=== PATIENT | male | born 1975 | race Caucasian/White ===

== ENCOUNTER 2016-12-10 10:37 | Emergency (ER) | payer MEDICAID ==
[2016-12-10 10:37] VITALS: BMI 34.8
[2016-12-10 10:44] VITALS: RESP 18; TEMP 98.2; O2SAT 98
[2016-12-10 11:35] LABS: BASO # 0.1 K/uL (0.0-0.2); BASO % 0.7 % (0.0-2.0); EOS # 0.1 K/uL (0.0-0.7); EOS % 0.6 % (0.0-4.0); HEMOGLOBIN 13.5 g/dL (12.0-18.0); LYMPH # 1.6 K/uL (1.0-4.3); LYMPH % 18.3 % (20.0-40.0); MEAN CELL VOLUME 90.5 fL (80.0-94.0); MEAN CORPUSCULAR HEMOGLOBIN 30.1 pg (27.0-31.0); MEAN CORPUSCULAR HGB CONC 33.2 g/dL (33.0-37.0); MONO # 0.3 K/uL (0.0-0.8); NEUT # 6.6 K/uL (1.8-7.0); NEUT % 76.4 % (50.0-75.0); RBC 4.49 Mil/uL (4.40-5.90); RED CELL DISTRIBUTION WIDTH 13.8 % (11.5-14.5); WHITE BLOOD COUNT 8.6 K/uL (4.8-10.8)
[2016-12-10 11:47] LABS: ALBUMIN 3.7 g/dL (3.5-5.0)
[2016-12-10 11:50] LABS: AST/SGOT 31 U/L (17-59); BLOOD UREA NITROGEN 12 mg/dL (9-20); GFR AFRICAN-AMERICAN > 60; GFR NON-AFRICAN AMERICAN > 60
[2016-12-10 11:51] LABS: ALT/SGPT 42 U/L (21-72); CALCIUM 8.5 mg/dl (8.6-10.4)
[2016-12-10] MEDS ORDERED: Oxycodone/Acetaminophen 5/325 mg Tab PO STA (11:57)
[2016-12-10] MEDS ORDERED: Oxycodone/Acetaminophen 5/325 mg Tab ONE (12:02)
--- NOTE | 2016-12-10 12:14 | C.PDOC ---
History Of Present Illness 40 y/o male with hx ivda, uses one bag every 1 1/2 hours, presents with redness , swelling and pain to dorsum of right foot and third left finger x 5 days after injecting heroin into those areas. pt denies fever and chills. Time Seen by Provider: 12/10/16 10:48 Chief Complaint (Nursing): Abnormal Skin Integrity History Per: Patient History/Exam Limitations: no limitations Onset/Duration Of Symptoms: Days (5) Current Symptoms Are (Timing): Worse Location Of Injury: Right: Foot, Left: Hand (3rd finger) Severity: Moderate Pain Scale Rating Of: 8 Recent travel outside of the [place]: No Past Medical History Reviewed: Historical Data, Nursing Documentation, Vital Signs Vital Signs: Last Vital Signs Temp 98.2 F 12/10/16 10:40 Pulse 79 12/10/16 13:40 Resp 18 12/10/16 13:40 BP 153/89 H 12/10/16 13:40 Pulse Ox 98 12/11/16 23:37 - Medical History PMH: No Chronic Diseases Surgical History: No Surg Hx Family History: States: Unknown Family Hx - Social History Hx Tobacco Use: Yes Hx Alcohol Use: No Hx Substance Use: Yes (heroin 1 bag q 1-2 hours ivda) - Immunization History Hx Tetanus Toxoid Vaccination: Yes Hx Influenza Vaccination: Yes Hx Pneumococcal Vaccination: Yes Review Of Systems Constitutional: Negative for: Fever, Chills Cardiovascular: Negative for: Chest Pain, Palpitations Respiratory: Negative for: Cough, Shortness of Breath Gastrointestinal: Negative for: Nausea, Vomiting Musculoskeletal: Positive for: Hand Pain (left), Foot Pain (right) Neurological: Negative for: Weakness, Numbness Physical Exam - Physical Exam Appears: Non-toxic, Agitated Skin: Warm, Dry, Other (tenderness, swelling and erythema to dorsum of right foot, +2 dp pulse, no fluctuance noted; third left finger swollen with erythema and warmth and tenderness. dec rom to finger due to swelling. no fluctuance noted. +piloerection) Head: Atraumatic, Normacephalic Neck: Normal ROM Chest: No Deformity, No Tenderness Cardiovascular: Rhythm Regular, No Murmur Respiratory: Normal Breath Sounds, No Rales, No Rhonchi, No Wheezing Gastrointestinal/Abdominal: Soft, No Tenderness Pulses: Left Radial: Normal, Right Radial: Normal, Left Dorsalis Pedis: Normal, Right Dorsalis Pedis: Normal Neurological/Psych: Oriented x3, Normal Speech, Normal Cognition ED Course And Treatment - Laboratory Results Result Diagrams: 12/10/16 11:29 12/10/16 11:29 O2 Sat by Pulse Oximetry: 98 Medical Decision Making Medical Decision Making: pt with active ivda with 2 areas of cellulitis, ? abscess on left finger. pt also asking for detox. pt requires admission for iv antibiotics and possible new onset dm- elevated blood glucose in ed. discussed with Crisis team, pt unable to be detoxed while admitted on medical floor. 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 Narocotic ordered for pat now for pain and withdrawal. discussed with Dr Mays for Admission to his service. 148 pm notified by ERIC Jorge that pt moved after a lot after getting iv morphine, took off gown and put on shirt and 24 g iv in right shoulder was dislodged. pt requesting to go home on po antibiotics. i explained to patient and multiple times that the infection in his foot and hand could easily turn into sepsis, be deadly; pt understands risks and consequences of leaving against medical advice including loss of foot, hand sepsis, . pt will get rx for bactrim and augmentin. pt advised he may return at any time for antibiotics and admission. Disposition Discussed With .: Leana Mays Doctor Will See Patient In The: Hospital - Disposition Disposition: AGAINST MEDICAL ADVICE Disposition Time: 13:52 Condition: SERIOUS Additional Instructions: Take medications as prescribed. FOllow up in Medical clinic as soon as possible. Return at any time to er for further treatment. Prescriptions: Amoxicillin/Clavulanate [Augmentin 875 MG-125 MG] 1 tab PO BID #20 tab Sulfamethoxazole/Trimethoprim [Bactrim DS 800 mg-160 mg] 1 tab PO BID #20 tab Instructions: Cellulitis (ED), Hyperglycemia, Non-Diabetic (ED) Forms: General Discharge Instructions Print Language: AZERI - Clinical Impression Clinical Impression: Cellulitis of right foot without toes, Cellulitis of left middle finger, Substance abuse, Hyperglycemia, unspecified Decision To Admit - Pt Status Changed To: Hospital Disposition Of: Inpatient - Admit Certification Admit to Inpatient:: After my assessment, the patient will require hospitalization for at least two midnights. This is because of the severity of symptoms shown, intensity of services needed, and/or the medical risk in this patient being treated as an outpatient. - InPatient: Physician Admission Certification: I certify that this patient requires 2 or more midnights of care for the following reason:: requires iv antibiotics - . Bed Request Type: Regular Patient Diagnosis: Cellulitis of right foot without toes, Cellulitis of left middle finger, Substance abuse, Hyperglycemia, unspecified
[2016-12-10 12:19] LABS: URINE BACTERIA RARE (<OCC); URINE BILIRUBIN NEGATIVE (NEGATIVE); URINE BLOOD NEGATIVE (NEGATIVE); URINE CLARITY Clear (Clear); URINE COLOR Yellow (YELLOW); URINE GLUCOSE (UA) NORMAL (Normal); URINE LEUKOCYTE ESTERASE NEG Leu/uL (Negative); URINE NITRATE NEGATIVE (NEGATIVE); URINE PROTEIN NEGATIVE (NEGATIVE); URINE UROBILINOGEN NORMAL mg/dL (0.2-1.0)
[2016-12-10 12:37] LABS: BARBITURATES, UR NEGATIVE (NEGATIVE); BENZODIAZEPINES, UR POSITIVE (NEGATIVE)
[2016-12-10 12:41] LABS: OPIATES, UR NEGATIVE (NEGATIVE)
[2016-12-10 12:42] LABS: PHENCYCLIDINE, UR NEGATIVE (NEGATIVE)
[2016-12-10] MEDS ORDERED: Cefepime 1 GM in Sodium Chloride 0.9% 50 ML IVPB ONE (13:19)
[2016-12-10] MEDS ORDERED: Cefepime 1 GM in Sodium Chloride 0.9% 100 ML IVPB ONE (13:30)
[2016-12-10] MEDS ORDERED: Morphine 4 MG/ML VIAL ONE (13:33)
[2016-12-10 13:40] VITALS: BP 153/89; PULSE 79
--- NOTE | 2016-12-10 14:30 | CP.PCM.HP ---
Past Patient History - Infectious Disease Hx of Infectious Diseases: None - Past Social History Smoking Status: Heavy Smoker > 10 Cigarettes Daily - PSYCHIATRIC Hx Substance Use: Yes (heroin 1 bag q 1-2 hours ivda) - SURGICAL HISTORY Hx Surgeries: No - ANESTHESIA Hx Anesthesia: No Meds Home Medications: Home Medication List Medication Instructions Recorded Confirmed Type Amoxicillin/Clavulanate [Augmentin 1 tab PO BID #20 tab 12/10/16 Rx 875 MG-125 MG] Sulfamethoxazole/Trimethoprim 1 tab PO BID #20 tab 12/10/16 Rx [Bactrim DS 800 mg-160 mg] Allergies/Adverse Reactions: Allergies Allergy/AdvReac Type Severity Reaction Status Date / Time No Known Allergies Allergy Verified 08/05/16 18:22 Physical Exam - Constitutional Appears: Well - Head Exam Head Exam: ATRAUMATIC, NORMAL INSPECTION, NORMOCEPHALIC - Eye Exam Eye Exam: EOMI, Normal appearance, PERRL Pupil Exam: NORMAL ACCOMODATION, PERRL - ENT Exam ENT Exam: Mucous Membranes Moist, Normal Exam - Neck Exam Neck exam: Positive for: Normal Inspection - Respiratory Exam Respiratory Exam: Decreased Breath Sounds - Cardiovascular Exam Cardiovascular Exam: REGULAR RHYTHM, +S1, +S2 - GI/Abdominal Exam GI & Abdominal Exam: Diminished Bowel Sounds, Soft - Rectal Exam Rectal Exam: Deferred Results - Vital Signs Recent Vital Signs: Last Vital Signs Temp 98.2 F 12/10/16 10:40 Pulse 79 12/10/16 13:40 Resp 18 12/10/16 13:40 BP 153/89 H 12/10/16 13:40 Pulse Ox 98 12/10/16 13:52 - Labs Result Diagrams: 12/10/16 11:29 12/10/16 11:29
--- NOTE | 2016-12-10 15:29 | RAD ---
Left hand three views History: Cellulitis. Swelling. Comparison: None available. Findings: Soft tissue swelling most prominent at the level of the 3rd digit. No evidence for acute displaced fracture or dislocation. No cortical destructive changes noted. Impression: Soft tissue swelling most prominent at the level of the 3rd digit. If pain persists, consider MRI.
--- NOTE | 2016-12-10 15:43 | RAD ---
Right foot three views History: Evaluate for osteomyelitis. Comparison: None available. Findings: Diffuse soft tissue swelling. No evidence of acute displaced fracture or dislocation. Mild hallux valgus deformity. Mild cortical productive changes at the level of the 5th distal phalanx. Degenerative changes and or mild subluxation at the 2nd DIP joint space. No gross bony destructive changes to suggest for an acute osteomyelitis. Impression: Negative acute. If pain persists, consider MRI.
== END 2016-12-10 14:07 | disposition left against medical advice (07) ==
LOC: C.ER 10:37 → UNDOADMIN 13:37 → C.9E 13:37
DX: L03.115 Cellulitis of right lower limb (principal); L03.012 Cellulitis of left finger; F19.10 Other psychoactive substance abuse, uncomplicated; R73.9 Hyperglycemia, unspecified
CPT/HCPCS: 36415; 73130; 73630; 80053; 80320; 80324; 80345; 80346; 80349; 80353; 80358; 80361; 81001; 83992; 85025; 87040; 96365; 96375; 99285; J0692; J2270

== ENCOUNTER 2017-11-13 17:13 | Observation (INO) | payer MEDICAID ==
[2017-11-13 17:13] VITALS: BMI 34.8
--- NOTE | 2017-11-13 18:23 | C.PDOC ---
History Of Present Illness <April Griffiths - Last Filed: 11/13/17 20:25> <Danial Durham DO - Last Filed: 11/14/17 00:32> Patient is a 41 year old male with no significant PMHx who presents today for worsening shortness of breath and cough which started 3 days ago. Patient started having green phlegm, cough, and vomiting for 2 days. Patient has not vomited in over 24 hours, but his cough and SOB have been worsening. Patient says he also has some right sided chest pain that is exacerbated by the cough. Patient admits to headache in the back of his head which he rates 8/10. Patient denies abdominal pain, constipation, or diarrhea. (April Griffiths) History Per: Patient History/Exam Limitations: no limitations Onset/Duration Of Symptoms: Days Current Symptoms Are (Timing): Worse Initiating Event: Upper Respiratory Illness Exacerbating Factor(s): Coughing Current Respiratory Medications: None Severity: Moderate Associated Symptoms: Fever, Sweating, Chest Pain, Productive Cough (green phlegm ) <April Griffiths - Last Filed: 11/13/17 20:25> <Danial Durham DO - Last Filed: 11/14/17 00:32> Chief Complaint (Nursing): Shortness Of Breath Past Medical History - Medical History PMH: No Chronic Diseases Surgical History: No Surg Hx Family History: States: Unknown Family Hx - Social History Hx Tobacco Use: Yes Hx Alcohol Use: No Hx Substance Use: Yes (heroin abuse, last use 1 year ago ) - Immunization History Hx Tetanus Toxoid Vaccination: Yes Hx Influenza Vaccination: Yes Hx Pneumococcal Vaccination: Yes <April Griffiths - Last Filed: 11/13/17 20:25> Vital Signs: Last Vital Signs Temp 98.3 F 11/13/17 20:56 Pulse 93 H 11/13/17 22:08 Resp 22 11/14/17 00:17 BP 125/77 11/13/17 20:56 Pulse Ox 94 L 11/13/17 22:08 Review Of Systems Constitutional: Positive for: Fever, Chills, Sweats ENT: Negative for: Nose Congestion Cardiovascular: Positive for: Chest Pain Respiratory: Positive for: Cough, Sputum (green sputum), Wheezing Gastrointestinal: Negative for: Nausea, Vomiting, Abdominal Pain, Diarrhea, Constipation Skin: Negative for: Rash <April Griffiths - Last Filed: 11/13/17 20:25> Physical Exam - Physical Exam Appears: Non-toxic, No Acute Distress, Agitated Skin: Normal Color, Warm, Diaphoretic Head: Atraumatic, Normacephalic Eye(s): bilateral: Normal Inspection Throat: Normal Chest: Symmetrical Cardiovascular: Rhythm Regular, No Edema Respiratory: No Normal Breath Sounds, Rhonchi, Wheezing Gastrointestinal/Abdominal: Normal Exam, Bowel Sounds, Soft, No Tenderness Extremity: No Tenderness, No Pedal Edema Neurological/Psych: Oriented x3 <April Griffiths - Last Filed: 11/13/17 20:25> ED Course And Treatment - Laboratory Results Result Diagrams: 11/13/17 19:41 11/13/17 19:41 ECG: Interpreted By Me, Viewed By Me ECG Rhythm: Sinus Rhythm Rate From EC (bpm) O2 Sat by Pulse Oximetry: 91 <April Griffiths - Last Filed: 11/13/17 20:25> - Laboratory Results Result Diagrams: 11/13/17 19:41 11/13/17 19:41 <Danial Durham DO - Last Filed: 11/14/17 00:32> Medical Decision Making <April Griffiths - Last Filed: 11/13/17 20:25> <Danial Durham DO - Last Filed: 11/14/17 00:32> Medical Decision Making: Assessment: SOB, cough, chest pain, hx heroin abuse Plan: Cxray Labs TIFFANIE EKG duonebs blood culture UDS pneumonia on cxray, given ceftriaxone 1 g and Zithromax 500mg (April Griffiths) Disposition <April Griffiths - Last Filed: 11/13/17 20:25> - Disposition Disposition Time: 19:00 <Danial Durham DO - Last Filed: 11/14/17 00:32> - Disposition Disposition: AGAINST MEDICAL ADVICE Condition: FAIR - Clinical Impression Clinical Impression: Chr obstructive pulmonary disease w/ acute lower respiratory infxn, Dyspnea, Respiratory tract infection
[2017-11-13] MEDS ORDERED: Albuterol-Ipratrop 3 mg / 0.5 (3 ml) UD INH STA ×2 (18:34→18:51)
[2017-11-13] MEDS ORDERED: Albuterol-Ipratrop 3 mg / 0.5 (3 ml) UD ONE ×2 (18:42→22:35)
[2017-11-13] MEDS ORDERED: Azithromycin 500 MG in Sodium Chloride 0.9% 250 ML IVPB STA (19:18)
[2017-11-13] MEDS ORDERED: cefTRIAXone IV 1 gm in Dextros 50 ML IVPB ONE (19:24)
[2017-11-13 19:45] LABS: BASO % 0.3 % (0.0-2.0); LYMPH # 0.9 K/uL (1.0-4.3); LYMPH % 7.2 % (20.0-40.0); MEAN CELL VOLUME 91.3 fL (80.0-94.0); MEAN CORPUSCULAR HEMOGLOBIN 30.7 pg (27.0-31.0); MEAN CORPUSCULAR HGB CONC 33.6 g/dL (33.0-37.0); MEAN PLATELET VOLUME 8.8 fL (7.2-11.7); MONO # 0.5 K/uL (0.0-0.8); MONO % 3.9 % (0.0-10.0); NEUT # 10.9 K/uL (1.8-7.0); NEUT % 88.6 % (50.0-75.0); NRBC % 0.1 % (0.0-2.0); PLATELET COUNT 282 K/uL (130-400); RBC 4.89 Mil/uL (4.40-5.90); RED CELL DISTRIBUTION WIDTH 13.8 % (11.5-14.5); WHITE BLOOD COUNT 12.3 K/uL (4.8-10.8)
[2017-11-13 20:02] LABS: ALB/GLOB RATIO 1.1 (1.0-2.1); CALCIUM 8.8 mg/dl (8.6-10.4); GFR AFRICAN-AMERICAN > 60; GFR NON-AFRICAN AMERICAN > 60
[2017-11-13 20:13] LABS: CK-MB 0.69 ng/mL (0.0-3.38)
[2017-11-13 20:15] LABS: ALT/SGPT 58 U/L (21-72); AST/SGOT 48 U/L (17-59); BLOOD UREA NITROGEN 18 mg/dL (9-20)
[2017-11-13 20:19] LABS: BANDS 14 % (0-2); LYMPHOCYTE 8 % (20-40); MONOCYTE 10 % (0-10); NEUTROPHIL 68 % (50-75); TOTAL CELLS COUNTED 100
[2017-11-13 20:20] LABS: MICROCYTOSIS SLIGHT; PLATELET ESTIMATE NORMAL (NORMAL)
[2017-11-13 20:21] LABS: POLYCHROMIC SLIGHT
[2017-11-13 21:01] VITALS: BP 125/77; TEMP 98.3
[2017-11-13] MEDS ORDERED: Albuterol-Ipratrop 3 mg / 0.5 (3 ml) UD IH SCH (21:30)
[2017-11-13] MEDS ORDERED: MethylPREDNISolone 40 mg Vial IVP SCH (22:00)
[2017-11-13 22:08] VITALS: PULSE 93; RESP 22; O2SAT 94
[2017-11-13] MEDS ORDERED: MethylPREDNISolone 40 mg Vial ONE (23:49)
--- NOTE | 2017-11-14 08:26 | CT ---
PROCEDURE: CT Chest without contrast HISTORY: SOB - f/u to CXR done today COMPARISON: None. TECHNIQUE: Contiguous axial images were obtained through the chest without intravenous contrast enhancement. Sagittal and coronal reconstructions were performed. Radiation dose (DLP): 363 mGy-cm. This CT exam was performed using one or more of the following dose reduction techniques: Automated exposure control, adjustment of the mA and/or kV according to patient size, and/or use of iterative reconstruction technique. FINDINGS: LUNGS: Diffuse bilateral ground-glass density infiltrates with fewer alveolar components. MEDIASTINUM: Unremarkable thoracic aorta. No aneurysm. Normal sized heart. Main pulmonary artery unremarkable. No vascular congestion. Multiple mildly enlarged of mediastinal lymph nodes.. PLEURA: No pleural fluid. No pneumothorax. BONES: No fracture. No destructive lesion. UPPER ABDOMEN: Grossly unremarkable. OTHER FINDINGS: None. IMPRESSION: Diffuse bilateral ground-glass density infiltrates with fewer alveolar components.Multiple mildly enlarged of mediastinal lymph nodes..
--- NOTE | 2017-11-14 10:26 | RAD ---
HISTORY: cough, sob, wheezing COMPARISON: No prior study available for comparison TECHNIQUE: Chest PA and lateral FINDINGS: LUNGS: Patchy bilateral opacities seen in the left mid and lower lung zone as well as right medial upper lung field and right lung base. Findings most likely represent multifocal infiltrates. PLEURA: No significant pleural effusion identified. No pneumothorax apparent. CARDIOVASCULAR: Normal. OSSEOUS STRUCTURES: No significant abnormalities. VISUALIZED UPPER ABDOMEN: Normal. OTHER FINDINGS: None. IMPRESSION: Findings most consistent with patchy bilateral multifocal infiltrates.
[2017-11-14] MEDS ORDERED: Azithromycin 500 MG in Sodium Chloride 0.9% 250 ML IVPB SCH (20:30)
== END 2017-11-14 00:15 | disposition left against medical advice (07) ==
LOC: C.ER 17:13 → C.9E 20:23 → C.5S 22:58
PROVIDERS: ADMIT Internal Medicine; ATTEND Internal Medicine
DX: J44.0 Chronic obstructive pulmonary disease with (acute) lower respiratory infection (principal); J18.9 Pneumonia, unspecified organism; F11.10 Opioid abuse, uncomplicated; R07.89 Other chest pain; F17.200 Nicotine dependence, unspecified, uncomplicated
CPT/HCPCS: 71046; 71250; 80053; 84484; 85025; 87040; 94640; 96365; 96367; 96375; G0378; J0456; J0696; J2920; J7050